=== PATIENT | female | born 1960 | race Caucasian/White ===

== ENCOUNTER → 2016-05-14 | Outpatient (CLI) | payer OTHER | LOC: FIMAGING 09:51 | DX: Z12.31 Encounter for screening mammogram for malignant neoplasm of breast (principal) | CPT/HCPCS: G0202 ==

== ENCOUNTER 2016-09-03 20:01 | Emergency (ER) | payer OTHER ==
--- NOTE | 2016-09-03 20:22 | EDPHY ---
H & P Stated Complaint: RUQ pain x 1 hour HPI/ROS: CHIEF COMPLAINT: Upper abdominal pain on the right HISTORY OF PRESENT ILLNESS: This is a 56-year-old female with a history of hypertension who presents with right upper quadrant abdominal pain that has been present throughout the day. She has had this intermittently for weeks but today it has been persistent. It is a dull aching sensation. It is not worse when she takes a deep breath. Eating does not bring on this pain. She thinks that bending forward seems to exacerbate the pain. She has not taken anything to alleviate pain. She denies fever, nausea vomiting, diarrhea, or urinary symptoms. She has some intermittent right leg pain that is ongoing and unchanged. No recent trauma. REVIEW OF SYSTEMS: A ten point review of systems was performed and is negative with the exception of the items mentioned in the HPI. Exam Limitations: Language barrier (Finnish english as a second language instructor present for patient encounters) - Personal History Current Tetanus Diphtheria and Acellular Pertussis (TDAP): Yes Tetanus Vaccine Date: 2012 - Medical/Surgical History Hx Asthma: No Hx Chronic Respiratory Disease: No Hx Diabetes: No Hx Cardiac Disease: Yes Hx Renal Disease: No Hx Cirrhosis: No Hx Alcoholism: No Hx HIV/AIDS: No Hx Splenectomy or Spleen Trauma: No Other PMH: "Blood in Urine" never diagnosed. Has had it 14 years. HTN, leg numbness. - Social History Smoking Status: Never smoked Alcohol Use: None Additional Social History: She works cleaning houses. Family members accompany her today. - Physical Exam Exam: General Appearance: Alert. Vital signs reviewed. Blood pressure 125/95 Eyes: Pupils equal and round, no conjunctival injection, no discharge. Anicteric. ENT, Mouth: Mucous membranes are moist, no oropharyngeal erythema or edema. Neck: No lymphadenopathy, supple. Respiratory: Lungs are clear to auscultation; no wheezes, rales, or rhonchi. Cardiovascular: Regular rate and rhythm; no murmur, rub, or gallop. Thorax: Tenderness over the right mid anterior lower ribcage. No deformity or crepitus. Gastrointestinal: Abdomen is soft and nontender, no masses or organomegaly, bowel sounds normal. Skin: Warm and dry, no rashes on exposed skin, normal color. Specifically no vesicular lesions. Back: Nontender to palpation over the thoracolumbar spine. No CVAT. Extremities: No lower extremity edema, no calf tenderness or swelling. Neurological: Alert and oriented. Moving all four extremities easily and equally. Psychiatric: Normal affect. Constitutional: Initial Vital Signs Temperature (C) 37.7 C 09/03/16 20:12 Heart Rate 68 09/03/16 20:12 Respiratory Rate 14 09/03/16 20:12 Blood Pressure 125/95 H 09/03/16 20:12 O2 Sat (%) 95 09/03/16 20:12 O2 Delivery Mode Room Air Allergies/Adverse Reactions: seasonal Allergy (Uncoded 06/28/15 23:02) Home Medications: Medication Instructions Recorded Lisinopril/Hctz 20/12.5MG 1 tab PO DAILY 05/29/11 [Zestoretic/Prinzide 20/12.5 mg (RX)] Loratadine [Claritin] 0 mg PO 05/29/11 Ondansetron Odt [Zofran Odt] 4 mg PO Q4PRN PRN #2 tab 04/16/13 Gabapentin 06/28/15 Medical Decision Making - Diagnostics Imaging: Discussed imaging studies w/ call center analyst Radiologist, I viewed and interpreted images myself ED Course/Re-evaluation: Lower right anterior rib cage pain vs. upper abdominal pain. No fever. Bloodwork WNL except for mild elevation of lipase at 336 and elevated glucose. Urine normal I do not think that the lipase elevation represents significant pancreatitis, LFTs nl and I do not think that she has cholecystitis. Normal WBC. She does not have a surgical abdomen. CXR does not show right sided pneumonia or rib injury or pneumothorax. There is cardiomegaly reported by radiologist. Etiology of her pain remains unclear. I do not find infection, surgical problem , lung or rib injury. I feel that she can safely return home with danger signs reviewed. She will follow up with PCP. Differential Diagnosis: Abdominal pain including but not limited to pneumonia, ptx, rib injury, pancreatitis, appendicitis, cholecystitis, gastritis and urinary tract infection. - Data Points Laboratory Results: Laboratory Results 09/03/16 22:05 09/03/16 22:05 Departure - Departure Disposition: Home, Routine, Self-Care Clinical Impression: Abdominal pain Qualifiers: Abdominal location: right upper quadrant Qualified Code(s): R10.11 - Right upper quadrant pain Condition: Good Instructions: Acute Abdominal Pain (ED) Additional Instructions: I think that this pain might be related to gallbladder. Adult Pain & Fever Control: We recommend Acetaminophen (Tylenol) and Ibuprofen (Motrin,Advil) for pain and fever control. When fever is high or pain severe, both drugs can be used at the same time, but at different intervals. Please note the time differences. Your dose is: Acetaminophen [650]mg every 4 to 6 hours Ibuprofen [400]mg every [8] hours with food OR Note: do not take Acetaminophen with Hydrocodone (Vicodin, Lortab) or Oycodone (Percocet). These medications also contain Acetaminophen. No more than 3000mg of Acetaminophen should be taken in 24 hours (for an adult). Schedule with Prisca Vickers for next week, for a recheck. Return if you have fever, vomiting, severe intractable pain. Creo que gabriela dolor puede estar relacionado con la visicula biliar. Control del dolor y de la fiebre del adulto: Recomendamos Acetaminophen (Tylenol) e Ibuprofeno (Motrin, Advil) para el control del dolor y la fiebre. Cuando la fiebre es hollie o el dolor es rika, ambos farmacos se pueden usar al mismo tiempo, nicci a intervalos diferentes. Tenga en cuenta las diferencias de tiempo. Jacob dosis es: Acetaminophen [650] mg cada 4 a 6 horas Ibuprofeno [400] mg cada [8] horas con comida O Nota: no tome Acetaminophen con Hydrocodon (Vicodin, Lortab) u Oycodone ( Percocet). Estos medicamentos tambien contienen acetaminofen. No mas de 3000 mg de Acetaminophen debe tomarse en 24 horas (para un adulto) Sonia ubaldo con Prisca Vickers para la proxima Semana, para un chequeo de nuevo. Referrals: NONE *PRIMARY CARE P,. [Unknown] - As per Instructions Report Scribed for: Tata Kaplan Report Scribed by: Janette Date of Report: 09/03/16 Physician Review and Approval Statement: 09/03/16 20:22 Portions of this note were transcribed by the medical research tech. I, Dr. Tata Kaplan, personally performed the history, physical exam, and medical decision- making; and confirmed the accuracy of the information in the transcribed note.
[2016-09-03 22:20] LABS: % IMMATURE GRANULYOCYTES 0.1 % (0.0-1.1); ABSOLUTE IMMATURE GRANULOCYTES 0.01 10^3/uL (0.00-0.10); ADD DIFF? NO; ADD MORPH? NO; ADD SCAN? NO; ATYPICAL LYMPHOCYTE FLAG 0 (0-99); FRAGMENT RBC FLAG 0 (0-99); LEFT SHIFT FLG 0 (0-99); LIPEMIA HEMOLYSIS FLAG 80 (0-99); MEAN CELL HEMOGLOBIN CONCENTR. 33.3 g/dL (32.4-36.7); MEAN CELL VOLUME 89.9 fL (81.5-99.8); MEAN PLATELET VOLUME 10.8 fL (8.7-11.7); PLATELET CLUMPS FLAG 0 (0-99); PLATELET COUNT 207 10^3/uL (150-400); RED BLOOD CELL COUNT 4.34 10^6/uL (4.18-5.33); RED CELL DISTRIBUTION WIDTH 12.5 % (11.5-15.2)
[2016-09-03 22:33] LABS: COLOR YELLOW; LEUKOCYTE ESTERASE,URINE NEGATIVE (NEGATIVE); NITRITE,URINE NEGATIVE (NEGATIVE)
[2016-09-03 22:35] LABS: ALANINE AMINOTRANSFERASE 32 IU/L (9-52); ALBUMIN 3.6 g/dL (3.5-5.0); ALKALINE PHOSPHATASE 100 IU/L (38-126); ANION GAP 10 mEq/L (8-16); ASPARTATE AMINOTRANSFERASE 22 IU/L (14-46); BILIRUBIN,TOTAL 0.3 mg/dL (0.1-1.4); BILIRUBIN-CONJUGATED 0.2 mg/dL (0.0-0.5); BILIRUBIN-UNCONJUGATED 0.1 mg/dL (0.0-1.1); CALCIUM 9.5 mg/dL (8.5-10.4); CARBON DIOXIDE 24 mEq/l (22-31); CHLORIDE 106 mEq/L (97-110); GLOMERULAR FILTRATION RATE 58; GLUCOSE 141 mg/dL (70-100); POTASSIUM 3.7 mEq/L (3.5-5.2); SODIUM 140 mEq/L (134-144); TOTAL PROTEIN 6.9 g/dL (6.3-8.2)
[2016-09-04 03:46] VITALS: BP 121/71; PULSE 78; RESP 16; TEMP 98.1; O2SAT 97
== END 2016-09-03 23:20 | disposition home or self-care (01) ==
DX: R10.11 Right upper quadrant pain (principal); I10 Essential (primary) hypertension

== ENCOUNTER 2017-12-11 22:21 | Emergency (ER) | payer OTHER ==
--- NOTE | 2017-12-11 22:53 | EDPHY ---
H & P Stated Complaint: R ABD PAIN X2 WKS, DX WITH GALLBLADDER/LIVER PROB, PAIN MED NOT HELP Time Seen by Provider: 12/11/17 22:45 HPI/ROS: CHIEF COMPLAINT: Right upper quadrant abdominal pain this evening HISTORY OF PRESENT ILLNESS: 57-year-old female via private vehicle complaining of right upper quadrant pain after eating dinner 6:00 p.m. Tonight. She ate a salad. She has previously seen her PCP within the past 2 weeks for similar complaints, given analgesia and told to go to the ER if she developed return of pain, told that she might have biliary colic. She denies radiation of pain. Denies lower abdominal pain. Denies urinary abnormality. Denies chest pain. Denies dyspnea. Denies syncope or near-syncope. Denies back pain. Denies dyspnea. PRIMARY CARE PROVIDER: [facility] REVIEW OF SYSTEMS: 10 systems reviewed and negative with the exception of the elements mentioned in the history of present illness PAST MEDICAL & SURGICAL HISTORY: No pertinent medical or surgical history SOCIAL HISTORY: Nonsmoker PHYSICAL EXAM (Prior to examination, patient consented to physical exam, hands were washed and my usual and customary physical exam procedures followed) 1) GENERAL: Alert and oriented. Appears to be in no acute distress. 2) HEAD: Normocephalic, atraumatic 3) HEENT: Pupils equal, round, reactive to light bilaterally. Sclera anicteric. Nasopharynx, oropharynx, clear, no lesions. Moist Mucous membranes. 4) NECK: Full range of motion, no meningeal signs. 5) LUNGS: Clear auscultation bilaterally, no wheezes, no rhonchi, no retractions. 6) HEART: Regular rate and rhythm, no murmur, no heave, no gallop. 7) ABDOMEN: No guarding, negative McBurney's, positive Couch's, negative Rovsing's, negative peritoneal sign, 8) MUSCULOSKELETAL: Moving all extremities, no focal areas of tenderness, no obvious trauma. No peripheral edema or discoloration. 9) BACK: No CVA tenderness, no midline vertebral tenderness, no fluctuance, no step-off, no obvious trauma, no visual or palpable abnormality. 10) SKIN: No rash, no petechiae. 11) Psychiatric: Patient is oriented X 3, there is no agitation. DIFFERENTIAL DIAGNOSIS: In no particular order, including but not limited to biliary colic, cholecystitis, peptic ulcer disease, pancreatitis, and gastroenteritis. This is a partial list of diagnoses considered. These considerations are based on history, physical exam, past history and reassessment. - Personal History Current Tetanus/Diphtheria Vaccine: Yes Tetanus Vaccine Date: 2012 - Medical/Surgical History Hx Asthma: No Hx Chronic Respiratory Disease: No Hx Diabetes: No Hx Cardiac Disease: No Hx Renal Disease: No Hx Cirrhosis: No Hx Alcoholism: No Hx HIV/AIDS: No Hx Splenectomy or Spleen Trauma: No Other PMH: "Blood in Urine" never diagnosed. Has had it 14 years. HTN, leg numbness, LIVER/GALLBLADDER PROB 12/09 - Social History Smoking Status: Never smoked Constitutional: Initial Vital Signs Temperature (C) 36.5 C 12/11/17 22:32 Heart Rate 58 L 12/11/17 22:32 Respiratory Rate 18 12/11/17 22:32 Blood Pressure 145/88 H 12/11/17 22:32 O2 Sat (%) 95 12/11/17 22:32 O2 Delivery Mode Room Air Allergies/Adverse Reactions: seasonal Allergy (Uncoded 12/11/17 22:30) Home Medications: Medication Instructions Recorded Lisinopril/Hctz 20/12.5MG 1 tab PO DAILY 05/29/11 [Zestoretic/Prinzide 20/12.5 mg (RX)] Ondansetron Odt [Zofran Odt] 4 mg PO Q4PRN PRN #10 tab 12/12/17 Medical Decision Making - Diagnostics Imaging Results: Imaging Impressions Abdomen Ultrasound 12/11/17 22:47 Impression: 1. Prominent common bile duct, with no visible choledocholithiasis or gallstones. ERCP or MRCP may be useful for further evaluation. 2. Hepatic steatosis. Findings discussed with Tucker Carpenter 12/11/2017 at 23:33. Images reviewed myself ED Course/Re-evaluation: 11:51 a.m.: Re-evaluation. Discussed with patient her laboratory studies and her ultrasound showing prominent common bile duct with no evidence of with no visible choledocholithiasis or gallstones. This time I think the patient can be discharged home. I think she would benefit from further evaluation, may necessitate more advanced diagnostic studies on outpatient basis. Given GI follow-up information, discussed my usual and customary dietary precautions. Doubt cardiac or pulmonary pathology. Doubt acute surgical abdominal pathology such as acute appendicitis in absence of other abdominal pain. Her pain is currently controlled. No nausea or vomiting. She feels comfortable being discharged. She has been given my usual customary abdominal precautions instructions. I saw this patient independently based on established practice protocols. Care of patient under supervision of secondary supervising physician Dr Morris whom I discussed case. - Data Points Laboratory Results: Laboratory Results 12/11/17 22:55 12/11/17 22:55 12/11/17 12/11/17 22:55 22:55 WBC 8.37 10^3/uL 10^3/uL (3.80-9.50) RBC 4.70 10^6/uL 10^6/uL (4.18-5.33) Hgb 14.2 g/dL g/dL (12.6-16.3) Hct 41.7 % % (38.0-47.0) MCV 88.7 fL fL (81.5-99.8) MCH 30.2 pg pg (27.9-34.1) MCHC 34.1 g/dL g/dL (32.4-36.7) RDW 12.4 % % (11.5-15.2) Plt Count 185 10^3/uL 10^3/uL (150-400) MPV 11.7 fL fL (8.7-11.7) Neut % (Auto) 42.0 % % (39.3-74.2) Lymph % (Auto) 47.4 % H % (15.0-45.0) [place] % (Auto) 7.5 % % (4.5-13.0) Eos % (Auto) 2.6 % % (0.6-7.6) Baso % (Auto) 0.5 % % (0.3-1.7) Nucleat RBC Rel Count 0.0 % % (0.0-0.2) Absolute Neuts (auto) 3.51 10^3/uL 10^3/uL (1.70-6.50) Absolute Lymphs (auto) 3.97 10^3/uL H 10^3/uL (1.00-3.00) Absolute Monos (auto) 0.63 10^3/uL 10^3/uL (0.30-0.80) Absolute Eos (auto) 0.22 10^3/uL 10^3/uL (0.03-0.40) Absolute Basos (auto) 0.04 10^3/uL 10^3/uL (0.02-0.10) Absolute Nucleated RBC 0.00 10^3/uL 10^3/uL (0-0.01) Immature Gran % 0.0 % % (0.0-1.1) Immature Gran # 0.00 10^3/uL 10^3/uL (0.00-0.10) Sodium 142 mEq/L mEq/L (135-145) Potassium 3.9 mEq/L mEq/L (3.3-5.0) Chloride 103 mEq/L mEq/L (97-110) Carbon Dioxide 28 mEq/l mEq/l (22-31) Anion Gap 11 mEq/L mEq/L (6-14) BUN 27 mg/dL H mg/dL (7-23) Creatinine 0.9 mg/dL mg/dL (0.6-1.0) Estimated GFR > 60 Glucose 95 mg/dL mg/dL (70-100) Calcium 9.8 mg/dL mg/dL (8.5-10.4) Total Bilirubin 0.3 mg/dL mg/dL (0.1-1.4) Conjugated Bilirubin 0.1 mg/dL mg/dL (0.0-0.5) Unconjugated Bilirubin 0.2 mg/dL mg/dL (0.0-1.1) AST 24 IU/L IU/L (14-46) ALT 24 IU/L IU/L (9-52) Alkaline Phosphatase 107 IU/L IU/L (38-126) Total Protein 7.7 g/dL g/dL (6.3-8.2) Albumin 4.1 g/dL g/dL (3.5-5.0) Lipase 363 IU/L H IU/L (23-300) Medications Given: Discontinued Medications Ondansetron HCl (Zofran Odt 4 Mg Prepack#2) 1 btl TAKEHOME EDNOW ONE Stop: 12/12/17 00:10 Last Admin: 12/12/17 00:12 Dose: 1 btl Ondansetron HCl (Zofran Odt) 4 mg PO EDNOW ONE Stop: 12/12/17 00:11 Last Admin: 12/12/17 00:12 Dose: 4 mg Departure - Departure Disposition: Home, Routine, Self-Care Clinical Impression: Biliary colic Condition: Good Instructions: Ondansetron (By mouth), Biliary Colic (ED) Additional Instructions: I recommend you eat a low-fat diet. If you develop new abdominal pain return to the ER for re-evaluation. Referrals: Prisca Nichole, PAC [Primary Care Provider] - 2-3 days, call for appt. Prescriptions: Ondansetron Odt [Zofran Odt] 4 mg PO Q4PRN PRN #10 tab PRN Reason: Nausea
[2017-12-11 23:02] LABS: PLATELET COUNT 185 10^3/uL (150-400)
[2017-12-12] MEDS ORDERED: ONDANSETRON 4MG PREPACK#2 BTL TAKEHOME ONE (00:09)
[2017-12-12] MEDS ORDERED: ONDANSETRON DISINTEGRATING 4 MG TAB PO ONE (00:10)
[2017-12-12 00:26] VITALS: BP 114/73
== END 2017-12-12 00:24 | disposition home or self-care (01) ==
DX: K83.8 Other specified diseases of biliary tract (principal); K76.0 Fatty (change of) liver, not elsewhere classified; I10 Essential (primary) hypertension